=== PATIENT | female | born 1990 | race Two or more races ===

== ENCOUNTER → 2017-02-13 | Outpatient (REF) | payer OTHER ==
[~2017-02-13] MED LIST: ANUS2.5C2 PR; ASCO500T PO; COLA100C5 PO; IBUP-1022 PO; MILKSUS PO; PRENTAB40 PO; TYLE167L PO; VITA500T PO
[2017-02-13 13:43] LABS: MEAN CORPUSCULAR HEMOGLOBIN 30.9 pg (27.0-33.0); MEAN CORPUSCULAR HGB CONC 33.9 g/dl (32.0-36.5); MEAN CORPUSCULAR VOLUME 91.1 fl (80.0-96.0); RED CELL DISTRIBUTION WIDTH 12.4 % (11.5-14.5)
[2017-02-13 13:54] LABS: ALBUMIN 3.8 GM/DL (3.2-5.2); ALKALINE PHOSPHATASE 64 U/L (45-117); ALT/SGPT 16 U/L (12-78); ANION GAP 8 MEQ/L (8-16); AST/SGOT 9 U/L (15-37); BILIRUBIN,TOTAL 0.5 MG/DL (0.2-1.0); BLOOD UREA NITROGEN 8 MG/DL (7-18); CALCIUM LEVEL 9.2 MG/DL (8.5-10.1); CARBON DIOXIDE LEVEL 26 MEQ/L (21-32); CHLORIDE LEVEL 107 MEQ/L (98-107); CREATININE FOR GFR 0.59 MG/DL (0.55-1.02); GLOMERULAR FILTRATION RATE > 60.0 (>60); GLUCOSE, FASTING 71 MG/DL (70-105); POTASSIUM SERUM 4.6 MEQ/L (3.5-5.1); SODIUM LEVEL 141 MEQ/L (136-145); TOTAL PROTEIN 7.6 GM/DL (6.4-8.2)
== END ==
LOC: M SFHCPLAZ 10:23
PROVIDERS: ATTEND Nurse Practitioner Adult Health
DX: Z00.00 Encounter for general adult medical examination without abnormal findings (principal)

== ENCOUNTER → 2017-02-14 | Outpatient (CLI) | payer MEDICAID | LOC: M OUTALCOH 08:34 | PROVIDERS: ATTEND Psychiatry & Neurology Psychiatry | DX: Z13.9 Encounter for screening, unspecified (principal) ==

== ENCOUNTER → 2018-05-08 | Outpatient (CLI) | payer MEDICAID | LOC: M OUTALCOH 08:29 | DX: Z03.89 Encounter for observation for other suspected diseases and conditions ruled out (principal) ==

== ENCOUNTER → 2019-05-11 | Outpatient (CLI) | payer MEDICAID ==
[~2019-05-11] MED LIST changes: +MILK120011 PO; -MILKSUS PO
== END ==
LOC: M OUTALCOH 09:02
PROVIDERS: ATTEND Psychiatry & Neurology Psychiatry
DX: F12.10 Cannabis abuse, uncomplicated (principal)

== ENCOUNTER 2019-06-02 15:59 | Outpatient (RCR) | payer MEDICAID ==
[2019-06-14] MEDS ORDERED: APAP325T4 PO (08:58)
[2019-06-14] MEDS ORDERED: NICO7PA TD (11:57)
== END 2019-06-20 ==
LOC: M OUTALCOH 15:59
PROVIDERS: ATTEND Psychiatry & Neurology Psychiatry
DX: F12.10 Cannabis abuse, uncomplicated (principal); F17.200 Nicotine dependence, unspecified, uncomplicated

== ENCOUNTER 2019-06-14 07:21 | Observation (INO) | payer MEDICAID ==
[~2019-06-14] VITALS: Ht 167.6 cm; Wt 75.5 kg
[2019-06-14] MEDS ORDERED: NS 1,000 ML IV ONE (07:45)
[2019-06-14 07:54] LABS: BASO % 0.7 % (0.0-1.0); EOS # 0.2 10^3/uL (0.0-0.5); EOS % 3.7 % (0.0-3.0); HEMATOCRIT 40.3 % (36.0-47.0); HEMOGLOBIN 13.3 g/dl (12.0-15.5); LYMPH # 2.3 10^3/uL (1.5-5.0); LYMPH % 36.6 % (24.0-44.0); MEAN CORPUSCULAR HEMOGLOBIN 29.6 pg (27.0-33.0); MEAN CORPUSCULAR VOLUME 89.6 fl (80.0-96.0); MONO # 0.5 10^3/uL (0.0-0.8); MONO % 7.5 % (0.0-5.0); NEUTROPHILS # 3.2 10^3/uL (1.5-8.5); NEUTROPHILS % 51.2 % (36.0-66.0); PLATELET COUNT, AUTOMATED 222 10^3/uL (150-450); WHITE BLOOD COUNT 6.2 10^3/uL (4.0-10.0)
[2019-06-14] MEDS: LEVALBUTEROL 1.25 MG/0.5 ML CONCENTRATE NEB NEB SCH ×4 (08:00→20:39)
[2019-06-14 08:05] LABS: HCG, SERUM QUALITATIVE NEGATIVE (NEGATIVE)
[2019-06-14 08:07] LABS: BLOOD UREA NITROGEN 10 MG/DL (7-18); CALCIUM LEVEL 8.6 MG/DL (8.5-10.1); CARBON DIOXIDE LEVEL 26 MEQ/L (21-32); CHLORIDE LEVEL 107 MEQ/L (98-107); CK-MB VALUE MASS < 1.0 NG/ML (<3.6); CPK CREATINE PHOSPHOKINASE 165 U/L (26-192); CREATININE FOR GFR 0.68 MG/DL (0.55-1.30); ETHYL ALCOHOL (ETHANOL) < 0.003 % (0.000-0.010); GLOMERULAR FILTRATION RATE > 60.0 (>60); GLUCOSE, FASTING 111 MG/DL (70-100); MB/CK RELATIVE INDEX 0.61 (< OR =4); POTASSIUM SERUM 3.6 MEQ/L (3.5-5.1); SODIUM LEVEL 140 MEQ/L (136-145); TROPONIN I < 0.02 NG/ML (< 0.10)
[2019-06-14] MEDS ORDERED: APAP325T4 PO (08:58)
--- NOTE | 2019-06-14 08:59 | REP ---
REASON: Possible pneumothorax. COMPARISON: Multiple, the latest 06/14/2019, which showed a left-sided pneumothorax. FINDINGS: The superior mediastinal structures are midline. The cardiac silhouette is unremarkable in size, shape, and position. The diaphragmatic surfaces of the lungs are regular, and the costophrenic angles are clear. The pulmonary bruno are clear. The imaged osseous structures are intact. IMPRESSION: There is no acute cardiopulmonary disease. The left-sided pneumothorax seen previously is completely reduced. Electronically Signed by Rambo Oh DO 06/14/2019 09:24 A
[2019-06-14] MEDS ORDERED: NICOTINE 7 MG/24 HR TRANSDERMAL TD SCH (09:00)
--- NOTE | 2019-06-14 09:48 | REP ---
PORTABLE AP CHEST: 06/14/2019 The time on the image is 7:53 a.m. FINDINGS: The technique utilized in obtaining the radiograph has magnified the cardiac silhouette and accentuated the interstitial markings. The superior mediastinal structures are midline. The cardiac silhouette is unremarkable in size, shape, and position. The diaphragmatic surfaces of the lungs are regular, and the costophrenic angles are clear. The pulmonary bruno are clear. The imaged osseous structures are intact. There is clothing artifact superimposed over t he left lung. IMPRESSION: There is no acute cardiopulmonary disease. Electronically Signed by Rambo Oh DO 06/14/2019 09:54 A
[2019-06-14 10:35] VITALS: BP 156/88
[2019-06-14] MEDS ORDERED: MORPHINE 4 MG/ML 1ML VIAL/SYRINGE (J2270) IV PRN (11:15)
[2019-06-14] MEDS ORDERED: PERCOCET 5MG/325MG TAB PO PRN (11:15)
[2019-06-14] MEDS ORDERED: NICO7PA TD (11:57)
[2019-06-14] MEDS ORDERED: NICOTINE POLACRILEX 2 MG GUM PO PRN (12:00)
[2019-06-14] MEDS: NS 1,000 ML IV SCH ×2 (12:00→12:51)
[2019-06-14] MEDS: guaiFENesin ER 600 MG TAB PO PRN (12:50)
[2019-06-14 14:00] VITALS: BP 152/89
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
[2019-06-14 22:34] VITALS: BP 149/86
[2019-06-15] MEDS: LEVALBUTEROL 1.25 MG/0.5 ML CONCENTRATE NEB NEB SCH ×3 (03:16→08:00)
[2019-06-15 06:19] VITALS: BP 155/89
[2019-06-15 07:53] LABS: BASO % 0.7 % (0.0-1.0); EOS # 0.3 10^3/uL (0.0-0.5); EOS % 4.1 % (0.0-3.0); HEMATOCRIT 36.1 % (36.0-47.0); HEMOGLOBIN 11.6 g/dl (12.0-15.5); LYMPH % 48.5 % (24.0-44.0); MEAN CORPUSCULAR HEMOGLOBIN 29.1 pg (27.0-33.0); MEAN CORPUSCULAR HGB CONC 32.1 g/dl (32.0-36.5); MEAN CORPUSCULAR VOLUME 90.7 fl (80.0-96.0); MONO # 0.5 10^3/uL (0.0-0.8); MONO % 8.3 % (0.0-5.0); NEUTROPHILS # 2.4 10^3/uL (1.5-8.5); NEUTROPHILS % 38.1 % (36.0-66.0); PLATELET COUNT, AUTOMATED 200 10^3/uL (150-450); RED BLOOD COUNT 3.98 10^6/uL (4.00-5.40); WHITE BLOOD COUNT 6.2 10^3/uL (4.0-10.0)
[2019-06-15 08:00] LABS: ALBUMIN 3.2 GM/DL (3.2-5.2); ALT/SGPT 22 U/L (12-78); BILIRUBIN,TOTAL 0.3 MG/DL (0.2-1.0); BLOOD UREA NITROGEN 8 MG/DL (7-18); CALCIUM LEVEL 8.7 MG/DL (8.5-10.1); CARBON DIOXIDE LEVEL 24 MEQ/L (21-32); CHLORIDE LEVEL 111 MEQ/L (98-107); CREATININE FOR GFR 0.51 MG/DL (0.55-1.30); GLOMERULAR FILTRATION RATE > 60.0 (>60); GLUCOSE, FASTING 98 MG/DL (70-100); MAGNESIUM LEVEL 1.9 MG/DL (1.8-2.4); SODIUM LEVEL 142 MEQ/L (136-145)
[2019-06-15] MEDS: guaiFENesin ER 600 MG TAB PO PRN (08:34)
== END 2019-06-15 08:35 | disposition home or self-care (01) ==
LOC: M ED 07:21 → M ED INP 08:51 → M MS5PR 10:35
PROVIDERS: ADMIT General Practice; ATTEND General Practice
DX: J70.5 Respiratory conditions due to smoke inhalation (principal); R49.0 Dysphonia; F17.210 Nicotine dependence, cigarettes, uncomplicated; Z72.89 Other problems related to lifestyle; Z88.2 Allergy status to sulfonamides; J30.1 Allergic rhinitis due to pollen
CPT/HCPCS: 36415; 71045; 71046; 80048; 80053; 81001; 82375; 82550; 82553; 83605; 83735; 84703; 85025; 93041; 94640; 94667; 94760; 96360; 96361; 99285; G0480

== ENCOUNTER 2019-07-03 16:00 | Outpatient (RCR) | payer MEDICAID ==
[~2019-07-03 16:00] MED LIST changes: +APAP325T4 PO; +NICO7PA TD
== END 2019-07-21 ==
LOC: M OUTALCOH 16:00
PROVIDERS: ATTEND Psychiatry & Neurology Psychiatry
DX: F12.10 Cannabis abuse, uncomplicated (principal); F17.200 Nicotine dependence, unspecified, uncomplicated

== ENCOUNTER → 2019-08-12 | Outpatient (CLI) | payer MEDICAID | LOC: M OUTALCOH 08:15 | PROVIDERS: ATTEND Psychiatry & Neurology Addiction Medicine | DX: F12.10 Cannabis abuse, uncomplicated (principal); F17.200 Nicotine dependence, unspecified, uncomplicated ==

== ENCOUNTER 2019-08-20 08:38 | Outpatient (RCR) | payer MEDICAID | END 2019-08-21 | LOC: M OUTALCOH 08:38 | PROVIDERS: ATTEND Psychiatry & Neurology Addiction Medicine | DX: F12.10 Cannabis abuse, uncomplicated (principal); F17.200 Nicotine dependence, unspecified, uncomplicated ==

== ENCOUNTER 2019-09-17 08:47 | Outpatient (RCR) | payer MEDICAID | END 2019-09-19 | LOC: M OUTALCOH 08:47 | PROVIDERS: ATTEND Psychiatry & Neurology Addiction Medicine | DX: F12.10 Cannabis abuse, uncomplicated (principal); F17.200 Nicotine dependence, unspecified, uncomplicated ==

== ENCOUNTER 2019-10-19 09:00 | Outpatient (RCR) | payer MEDICAID | END 2019-10-20 | LOC: M OUTALCOH 09:00 | PROVIDERS: ATTEND Psychiatry & Neurology Addiction Medicine | DX: F12.10 Cannabis abuse, uncomplicated (principal); F17.200 Nicotine dependence, unspecified, uncomplicated ==

== ENCOUNTER 2019-11-17 09:00 | Outpatient (RCR) | payer MEDICAID ==
[~2019-11-17 09:00] MED LIST changes: +VITA-243 PO; -VITA500T PO
== END 2019-11-19 ==
LOC: M OUTALCOH 09:00
PROVIDERS: ATTEND Psychiatry & Neurology Addiction Medicine
DX: F12.10 Cannabis abuse, uncomplicated (principal); F17.200 Nicotine dependence, unspecified, uncomplicated

== ENCOUNTER 2019-11-24 14:03 | Outpatient (RCR) | payer MEDICAID | END 2019-12-20 | LOC: M OUTALCOH 14:03 | PROVIDERS: ATTEND Psychiatry & Neurology Addiction Medicine | DX: F12.10 Cannabis abuse, uncomplicated (principal); F17.200 Nicotine dependence, unspecified, uncomplicated ==

== ENCOUNTER → 2022-03-29 | Outpatient (REF) | payer MEDICAID ==
[2022-03-29 21:12] LABS: APPEARANCE, URINE MANUAL CLOUDY (CLEAR); COLOR, URINE MANUAL YELLOW (YELLOW)
[2022-03-29 21:13] LABS: BILIRUBIN, URINE MANUAL NEGATIVE (NEGATIVE); BLOOD URINE MANUAL POSITIVE (NEGATIVE); GLUCOSE, URINE (UA) MANUAL NEGATIVE (NEGATIVE); KETONE, URINE MANUAL NEGATIVE (NEGATIVE); LEUKOCYTE ESTERASE, URINE MAN POSITIVE (NEGATIVE); NITRITE, URINE MANUAL POSITIVE (NEGATIVE); PROTEIN, URINE MANUAL 2+ mg/dL (NEGATIVE); UROBILINOGEN, URINE MANUAL NORMAL (NORMAL)
[2022-03-29 21:21] LABS: BACTERIA, URINE LARGE AMOUNT; HYALINE CAST, URINE NONE SEEN /lpf (0-1); SQUAMOUS EPITHELIAL CELL URINE NONE SEEN /hpf (SMALL AMT); WBC, URINE 40-50 /hpf (0-3)
== END ==
LOC: M LAB REF 16:28
PROVIDERS: ATTEND Physician Assistant Medical
DX: N39.0 Urinary tract infection, site not specified (principal)

== ENCOUNTER → 2022-11-04 | Outpatient (REF) | payer MEDICAID | LOC: M LAB REF 13:34 | PROVIDERS: ATTEND Physician Assistant Medical | DX: J02.9 Acute pharyngitis, unspecified (principal) ==